=== PATIENT | female | born 1935 | race Caucasian/White ===

== ENCOUNTER 2019-12-07 08:22 | Day surgery (SDC) | payer MEDICARE, OTHER ==
--- NOTE | 2019-12-07 11:05 | NUR ---
1040 PT BROUGHT TO ROOM 203 VIA [facility]. GUMARO CHECKS FOLLOWS. PT HAS CHRONIC WEAKNESS IN R LEG WITH PUSH AND PULL. PT C/O OF LOSING ABILITY TO USE L HAND. PACKER DENTURE BILATERALLY EQUAL. PT GAURDING LEFT ARM. PT IS LEFT HAND DOMINANT. PT STATES THET HER PAIN IS THE SAME BEFORE THE MYELOGRAM. Dressing to procedure site clean, dry, intact with no visible drainage, swelling, erythema or bruising noted. VSS. PROVIDED FOOD AND FLUID. WILL CONTINUE TO MONITOR FOR CHANGES. PT VERBALIZES UNDERSTANDING OF SYMPTOMS TO REPORT TO NURSING STAFF.
--- NOTE | 2019-12-07 11:58 | NUR ---
Dressing to procedure site clean, dry, intact with no visible drainage, swelling, erythema or bruising noted. Discharge instructions reviewed with patient. Patient verbalizes understanding. Copy given to patient to take home. NO CHANGE IN NUERO CHECKS T/O RECOVERY. Patient States Post-Procedure ride home has been arranged. Discharged via wheelchair to private car for ride home. ALL BELONINGS SENT HOME WITH PATIENT.
== END 2019-12-07 22:59 | disposition home or self-care (01) ==
LOC: RAD 08:22
DX: M54.2 Cervicalgia (principal); R20.3 Hyperesthesia; J44.1 Chronic obstructive pulmonary disease with (acute) exacerbation; I11.0 Hypertensive heart disease with heart failure; I50.32 Chronic diastolic (congestive) heart failure; E03.9 Hypothyroidism, unspecified; Q21.1 Atrial septal defect; D64.9 Anemia, unspecified; K90.0 Celiac disease; E87.1 Hypo-osmolality and hyponatremia; E66.9 Obesity, unspecified; Z68.38 Body mass index [BMI] 38.0-38.9, adult
CPT/HCPCS: 62302; 72126; Q9967

== ENCOUNTER 2022-10-18 00:53 | Emergency (ER) | payer MEDICARE, OTHER ==
[~2022-10-18] VITALS: Ht 165.1 cm; Wt 77.1 kg
[2022-10-18 01:45] LABS: Calcium, Ionized (POC) 1.14 mmol/L (1.10-1.46); Chloride (POC) 100 mmol/L (98-108); Glucose (ISTAT POC) 150 mg/dL (70-99); Hemoglobin (POC) 10.5 g/dL (12.0-16.0); Potassium (POC) 3.7 mmol/L (3.5-5.5); Sodium (POC) 140 mmol/L (135-148); Total CO2 (POC) 29 mmol/L (21-32)
[2022-10-18 03:58] VITALS: BP 115/87
[2022-10-18] MEDS ORDERED: HORIZANT300 MG (04:22)
[2022-10-18] MEDS ORDERED: GABA100 (04:22)
[2022-10-18] MEDS ORDERED: ROPINIROLE HCL2 M1 PO (04:23)
[2022-10-18] MEDS ORDERED: FUROSEMIDE40 MG PO (04:24)
[2022-10-18] MEDS ORDERED: ELIQUIS5 M3 PO (04:24)
== END 2022-10-18 04:18 | disposition home or self-care (01) ==
LOC: ER 00:53
PROVIDERS: Emergency Medicine
DX: G25.81 Restless legs syndrome (principal); I48.91 Unspecified atrial fibrillation; F17.200 Nicotine dependence, unspecified, uncomplicated; Z88.8 Allergy status to other drugs, medicaments and biological substances; Z91.018 Allergy to other foods
CPT/HCPCS: 80047; 85014; 93005; 93010; 96374; 96376; 99284-25; A9270; J2060

== ENCOUNTER 2023-02-02 01:50 | Emergency (ER) | payer MEDICARE, OTHER ==
[~2023-02-02] VITALS: Ht 167.6 cm; Wt 78.0 kg
[~2023-02-02 01:50] MED LIST: ELIQUIS5 M3 PO; FUROSEMIDE40 MG PO; GABA100; HORIZANT300 MG; ROPINIROLE HCL2 M1 PO
[2023-02-02 04:30] VITALS: BP 121/107
== END 2023-02-02 06:00 | disposition home or self-care (01) ==
LOC: ER 01:50
DX: R29.6 Repeated falls (principal); S16.1XXA Strain of muscle, fascia and tendon at neck level, initial encounter; S05.12XA Contusion of eyeball and orbital tissues, left eye, initial encounter; S70.01XA Contusion of right hip, initial encounter; I48.91 Unspecified atrial fibrillation; F17.210 Nicotine dependence, cigarettes, uncomplicated; Z88.6 Allergy status to analgesic agent; Z91.018 Allergy to other foods; Z79.01 Long term (current) use of anticoagulants; W19.XXXA Unspecified fall, initial encounter
CPT/HCPCS: 70450; 72125; 73502

== ENCOUNTER 2023-03-30 05:32 | Inpatient (IN) | payer MEDICARE, OTHER ==
[~2023-03-30] VITALS: Ht 165.1 cm; Wt 64.6 kg
[2023-03-30] MEDS ORDERED: LISI5 PO (06:19)
[2023-03-30] MEDS ORDERED: METO50ER PO (06:19)
[2023-03-30] MEDS ORDERED: FUROSEMIDE20 MG PO (06:19)
[2023-03-30] MEDS ORDERED: Ventolin/Prove6.7 GM INH (06:20)
[2023-03-30] MEDS ORDERED: [UNRECOGNIZED DRUG - CODE] PO (06:32)
[2023-03-30 07:10] LABS: Influenza A, PCR NEGATIVE (NEGATIVE); Influenza B, PCR NEGATIVE (NEGATIVE); Resp Syncytial Virus, PCR NEGATIVE (NEGATIVE); SARS-Cov-2 (COVID-19) PCR, MMC NEGATIVE (NEGATIVE)
[2023-03-30 07:58] LABS: BASOPHILS ABSOLUTE AUTO 0.03 K/mm3 (0.00-0.23); BASOPHILS PERCENT AUTO 0 % (0-2); EOSINOPHILS PERCENT AUTO 1 % (0-6); Hematocrit 40.8 % (33.0-51.0); Hemoglobin 13.3 g/dL (11.5-16.0); IMMATURE GRAN ABSOLUTE AUTO 0.03 K/mm3 (0.00-0.10); IMMATURE GRAN PERCENT AUTO 0 % (0-1); LYMPHOCYTES PERCENT AUTO 14 % (21-46); MONOCYTES PERCENT AUTO 6 % (4-13); Mean Corpuscular HGB Conc 32.6 g/dL (31.5-36.5); Mean Corpuscular Volume 86 fL (80-100); Mean Platelet Volume 11.3 fL (9.1-12.4); NEUTROPHILS ABSOLUTE AUTO 8.44 K/mm3 (1.96-9.15); NEUTROPHILS PERCENT AUTO 79 % (41-73); Platelet Count 269 K/mm3 (150-400); RDW Coefficient Variation 16.1 % (11.7-14.2); RDW Standard Deviation 50.4 fL (35.1-46.3); Red Blood Cell Count 4.75 M/mm3 (3.80-5.20)
[2023-03-30 08:15] LABS: Albumin, Blood 3.7 g/dL (3.4-5.0); Albumin/Globulin Ratio 0.9 (0.8-1.8); Bilirubin, Total 1.8 mg/dL (0.1-1.0); Calcium, Blood 9.2 mg/dL (8.5-10.1); Potassium, Blood 3.8 mmol/L (3.5-5.5); Total Protein, Blood 7.7 g/dL (6.4-8.2)
[2023-03-30 08:51] LABS: Base Excess Venous 5.3 mmol/L; PCO2 Venous 51.1 mmHg (38-42); pH Blood Venous 7.38 (7.34-7.37)
[2023-03-30 12:07] VITALS: BP 144/84
[2023-03-30 14:57] VITALS: BP 121/80
--- NOTE | 2023-03-30 16:19 | NUR ---
SHIFT SUMMARY: PATIENT ARRIVED TO ROOM AT AROUND 1150 VIA GURNEY FROM ER FOR DX'S OF CHF EXCERBATION. PATIENT IS A/OX4. CALM, PLEASANT AND COOPERATIVE c CARE. MEDRIC, ADMISSION AND 2 RN'S SKIN ASSESSMENT COMPLETED. PATIENT LUNGS COARSE, CRACKLES AND MOIST T/O TO AUSCULTATION. PATIENT WAS ON 4L OF O2 VIA NC WHEN ARRIVED TO ROOM c SPO2 RANGES 99-100%. O2 WAS TITRATED DOWN TO 2L VIA NC c SPO2 RANGES 96-97%. PATIENT ON CONTINUES BIOX IN ROOM, PLACED ON RA AT AROUND 1240, SPO2 RANGES 94-96% T/O SHIFT. PATIENT DENIES CP/PRESSURE, SOB, N/V, DIZZINESS AND GENERALIZED PAIN. REPORTS CHRONIC RESTLESS LEG SYNDROME. PATIENT HAS IMPLANTED PAIN PUMP STIMULATOR TO L LOWER BACK. PATIENT ON TELE, AFIB HR IN THE MID 90'S BPM. PATIENT RECEIVED 40 MG OF IV LASIX AND IV ABX. PUREWICKED SYTEM PLACED, CONNECTED TO LOW SUCTION c 1200 MLS TOTAL URINE OUTPUT & 1 INCONTINENCE VOID THIS SHIFT . PATIENT REPORTS SHE LEFT HER PURSE c MONEY IN IT DOWN IN ER ROOM. THIS RN CALLED, ROBINSON SANTACRUZ RN IN ED TAKING CARE OF PATIENT. PER ROBINSON, SHE CHECKED THE ROOM OF WERE THE PATIENT WAS AND SHE COULD NOT FIND ANY PURSE. DRY BOSS WAS NOTIFIED c THIS ISSUE. THIS RN TRIED TO CALL THE NUMBER LISTED ON PATIENT RECORD, BUT NO ONE ABLE TO ANSWER THE PHONE. VITAL SIGNS REVIEWED. SCD'S TO BLE IN PLACED. BED ALARM ON FOR SAFETY. CALL LIGHT IN REACH.
[2023-03-30 19:29] VITALS: BP 119/91
[2023-03-31 03:58] VITALS: BP 147/102
--- NOTE | 2023-03-31 04:44 | NUR ---
SHIFT SUMMARY: PRODUCTIVE COUGH, ALMOST CONSTANT. LUNG SOUNDS ARE VERY WET AND CRACKLY. RT PLACED PT ON BIPAP EARLY IN THE SHIFT, BUT PT UNABLE TO TOLERATE SO SHE TOOK IT OFF AND O2 VIA NC WAS PLACED. LATER IN THE SHIFT, BREATHING TREATMENT WAS REQUESTED BY THIS AUTHOR TO SEE IF IT WOULD EASE HER COUGHING. RT CAME BY AND EDUCATED PT THAT SHE NEEDED THE BIPAP D/T HER CHF AND FLUID OVERLOAD. PT HAS BEEN COMPLIANT SINCE. NO EVENTS ON TELEMETRY, AFIB 90'S. RESTLESS LEGS ALSO MADE PT UNCOMFORTABLE DURING THE NIGHT, UNABLE TO TOLERATE SCD'S. GOT UP TO BR X 1 WITH ASSISTANCE.
--- NOTE | 2023-03-31 05:47 | NUR ---
PATIENT WITH HX OF RESTLESS LEGS SYNDROME, GAVE 2100 DOSE ROPINIROLE. AT ~ 0500, PATIENT MOVING HER LEGS VIOLENTLY IN BED. RR INCREASED TO 30'S PER BIPAP AND SHE WAS CRYING OUT IN PAIN. SPOKE TO DR. MINOR BY PHONE TO REPORT THIS; RECEIVED TELEPHONE ORDER FOR VALIUM 2.5 MG IV ONCE TO SEE IF THAT WOULD HELP HER LEGS AND ALLOW HER TO REST. VALIUM GIVEN AND LEGS APPEAR CALM AT HIS TIME. RR 12-14, O2 SAT 89-92% ON BIPAP.
[2023-03-31 05:50] LABS: Bun/Creatinine Ratio 17.4 (12.0-20.0); Calcium, Blood 8.1 mg/dL (8.5-10.1); Creatinine, Blood 0.86 mg/dL (0.40-1.00); Potassium, Blood 3.1 mmol/L (3.5-5.5)
[2023-03-31 07:26] VITALS: BP 134/99
--- NOTE | 2023-03-31 09:07 | NUR ---
ROBINSON CARLTON, Dispop REPORTED HR DIPPING TO 34. PATIENT WAS ASYMPTOMATIC AT THE TIME. SHE IS CURRENTLY RUNNING AFIB IN THE 80'S. DR GARCIA. WILL CONTNUE TO MONITOR.
--- NOTE | 2023-03-31 16:15 | NUR ---
SHIFT SUMMARY A&OX4, COOPERATIVE WITH CARE, PLEASANT. CALLED APPROPRIATELY T/O SHIFT. DENIED HAVING ANY CP/PRESSURE, HEADACHE, OR DIZZINESS. SOB AT BASELINE R/T COPD AND CHRONIC SMOKER. PATIENT HAS BEEN AMBULATING TO THE BATHROOM SBA WITH FWW WELL. KYPHOSIS NOTED. NO ACUTE CHANGES THIS SHIFT. PATIENT IS BEING DIURESED. CURRENTLY IS EATING ICE CREAM AND WATCHING TV. BED IN LOWEST POSITION. CALL LIGHT WITHIN REACH.
[2023-03-31 16:31] VITALS: BP 113/78
[2023-03-31 19:39] VITALS: BP 135/80
[2023-04-01 04:27] VITALS: BP 100/71
--- NOTE | 2023-04-01 06:20 | NUR ---
SHIFT SUMMARY ADMITTED FOR CHF EXAC/RLL PNEUMONIA. FULL CODE. PLAN IS DIURESE, ANTIBIOTICS, AND RT TX'S. SHE IS ON RA IN DAYTIME, 2 LPM @ HS. SHE DOES NOT TOLERATE THE BIPAP. TELEMETRY: AFIB @ 70 BPM W/BBB. DYSPNEA W/EXERTION AND WET COUGH. 1 ASSIST W/FWW - BRP. LUNGS COARSE THROUGHOUT, CRACKLES IN BASES. NO NEW CONCERNS THIS SHIFT
[2023-04-01 06:39] LABS: Bun/Creatinine Ratio 22.7 (12.0-20.0); Creatinine, Blood 1.19 mg/dL (0.40-1.00); Potassium, Blood 4.2 mmol/L (3.5-5.5)
[2023-04-01 07:25] VITALS: BP 112/72
--- NOTE | 2023-04-01 10:40 | NUR ---
MILANA CALLED PT FRIEND MARTA AT HOME. HE CONFIRMED THAT HER PURSE IS HANGING ON HER WALKER. HE IS AVAILABLE TO COME GET HER TODAY. CARE ON GOING.
--- NOTE | 2023-04-01 11:44 | NUR ---
BIPAP PT USING BIPAP AFTER THERAPY. SHE DOESN'T DESAT BUT HER WORK OF BREATHING GOES UP. LUNGS COARSE T/O. DEEP WET CONGESTED COUGH. PT TOLERATING BIPAP WELL. CONTINUE POC.
[2023-04-01 14:48] VITALS: BP 84/54
[2023-04-01] MEDS ORDERED: JARDIANCE10 MG PO (15:08)
[2023-04-01] MEDS ORDERED: FURO40 PO (15:09)
[2023-04-01] MEDS ORDERED: LEVFLO500 PO (15:09)
[2023-04-01] MEDS ORDERED: POTA10T PO (15:10)
--- NOTE | 2023-04-01 15:55 | NUR ---
DISCHARGE PT DISCHARGED HOME. [facility] WILL MEET HER OUTSIDE ADMITTING. PT IV REMOVED WITH [facility]A INTACT. PRESSURE DRESSING APPLIED. PT TRANSPORTED VIA W/C. CONTINUE POC.
== END 2023-04-01 15:55 | disposition home health service (06) | DRG 193 ==
LOC: ER 05:32 → MEDS 10:06 → ENPENDDIS 04-01 13:29 → MEDS 04-01 15:55
PROVIDERS: Emergency Medicine; ADMIT Internal Medicine
PROC: 5A09357 Assistance with Respiratory Ventilation, Less than 24 Consecutive Hours, Continuous Positive Airway Pressure (ICD-10-PCS; principal; 2023-03-30)
DX: J18.9 Pneumonia, unspecified organism (principal); I50.33 Acute on chronic diastolic (congestive) heart failure; J96.01 Acute respiratory failure with hypoxia; I48.20 Chronic atrial fibrillation, unspecified; Z20.822 Contact with and (suspected) exposure to COVID-19; I11.0 Hypertensive heart disease with heart failure; G25.81 Restless legs syndrome; I16.0 Hypertensive urgency; J44.9 Chronic obstructive pulmonary disease, unspecified; F17.210 Nicotine dependence, cigarettes, uncomplicated; Z99.81 Dependence on supplemental oxygen; Z91.018 Allergy to other foods; Z88.8 Allergy status to other drugs, medicaments and biological substances; Z79.899 Other long term (current) drug therapy; Z23 Encounter for immunization
CPT/HCPCS: 0241U; 36415; 71045; 80048; 80053; 82803; 82947; 83735; 83880; 84145; 85025; 93005; 93010; 93306; 94640; 94660; 94664; 94761; 94762; 97110; 97116; 97161; 99285-25; A9270; J0696; J1940; J3360

== ENCOUNTER 2023-12-24 21:31 | Emergency (ER) | payer MEDICARE, OTHER ==
[~2023-12-24] VITALS: Ht 154.9 cm; Wt 59.0 kg
[~2023-12-24 21:31] MED LIST changes: +AZIT250 PO; +FURO40 PO; +FUROSEMIDE20 MG PO; +JARDIANCE10 MG PO; +LEVFLO500 PO; +LISI5 PO; +METO50ER PO; +POTA10T PO; +PRED20 PO; +Ventolin/Prove6.7 GM INH; +[UNRECOGNIZED DRUG - CODE] PO
[2023-12-24 21:35] VITALS: BP 101/61
[2023-12-24 22:21] LABS: Hematocrit 37.8 % (33.0-51.0); Hemoglobin 12.2 g/dL (11.5-16.0); Mean Corpuscular HGB Conc 32.3 g/dL (31.5-36.5); Mean Corpuscular Volume 87 fL (80-100); RDW Coefficient Variation 15.7 % (11.7-14.2); RDW Standard Deviation 50.3 fL (35.1-46.3); Red Blood Cell Count 4.36 M/mm3 (3.80-5.20); White Blood Cell Count 7.54 K/mm3 (4.00-11.30)
[2023-12-24 22:32] LABS: Albumin, Blood 3.4 g/dL (3.4-5.0); Bilirubin, Total 1.3 mg/dL (0.1-1.0); Bun/Creatinine Ratio 23.1 (12.0-20.0); Calcium, Blood 8.7 mg/dL (8.5-10.1); Creatinine, Blood 0.78 mg/dL (0.40-1.00); Globulin, Blood 3.4 g/dL (2.2-4.0); Potassium, Blood 4.4 mmol/L (3.5-5.5); Total Protein, Blood 6.8 g/dL (6.4-8.2)
[2023-12-24] MEDS ORDERED: Ketorolac Tromethamine 30mg Vial IV ONE (22:40)
[2023-12-24] MEDS ORDERED: rOPINIRole HCl 2 MG Tab PO ONE (22:55)
[2023-12-24] MEDS ORDERED: Ropinirole HCl1 MG PO (22:56)
[2023-12-24 23:14] LABS: BAND PERCENT MAN 2 % (0-8); BASOPHILS ABSOLUTE MAN 0.07 K/mm3 (0.00-0.23); BASOPHILS PERCENT MAN 1 % (0-2); EOSINOPHILS ABSOLUTE MAN 0.37 K/mm3 (0.00-0.68); EOSINOPHILS PERCENT MAN 5 % (0-6); LYMPHOCYTES % ATYPICAL MANUAL 1 % (0-0); LYMPHOCYTES PERCENT MAN 23 % (21-46); MONOCYTES ABSOLUTE MAN 0.67 K/mm3 (0.16-1.47); MONOCYTES PERCENT MAN 9 % (4-13); NEUTROPHILS ABSOLUTE MAN 4.59 K/mm3 (1.96-9.15); SEG NEUTROPHILS PERCENT MAN 59 % (41-73); TOTAL CELLS COUNTED 100
[2023-12-24 23:15] LABS: Platelet Count 212 K/mm3 (150-400)
== END 2023-12-24 23:26 | disposition home or self-care (01) ==
LOC: ER 21:31
PROVIDERS: Emergency Medicine
DX: Z76.0 Encounter for issue of repeat prescription (principal); J44.1 Chronic obstructive pulmonary disease with (acute) exacerbation; I11.0 Hypertensive heart disease with heart failure; I50.9 Heart failure, unspecified; F17.210 Nicotine dependence, cigarettes, uncomplicated; Z88.6 Allergy status to analgesic agent; Z91.018 Allergy to other foods; Z79.899 Other long term (current) drug therapy; Z99.81 Dependence on supplemental oxygen
CPT/HCPCS: 71045; 80053; 83880; 84484; 85025; 93005; 93010; 96374; 99285-25; A9270; J1885

== ENCOUNTER 2024-07-30 22:04 | Observation (INO) | payer MEDICARE, OTHER ==
[~2024-07-30] VITALS: Ht 165.1 cm; Wt 63.3 kg
[~2024-07-30 22:04] MED LIST changes: +Ropinirole HCl1 MG PO
[2024-07-30] MEDS ORDERED: Ipratropium/Albuterol SulF 2.5-0.5MG/3 ML Amp INH ONE (22:25)
[2024-07-30 22:30] LABS: BASOPHILS ABSOLUTE AUTO 0.02 K/mm3 (0.00-0.23); BASOPHILS PERCENT AUTO 0 % (0-2); EOSINOPHILS ABSOLUTE AUTO 0.31 K/mm3 (0.00-0.68); EOSINOPHILS PERCENT AUTO 6 % (0-6); Hematocrit 35.7 % (33.0-51.0); Hemoglobin 11.6 g/dL (11.5-16.0); IMMATURE GRAN ABSOLUTE AUTO 0.01 K/mm3 (0.00-0.10); IMMATURE GRAN PERCENT AUTO 0 % (0-1); LYMPHOCYTES ABSOLUTE AUTO 2.31 K/mm3 (0.84-5.20); LYMPHOCYTES PERCENT AUTO 43 % (21-46); MONOCYTES ABSOLUTE AUTO 0.41 K/mm3 (0.16-1.47); MONOCYTES PERCENT AUTO 8 % (4-13); Mean Corpuscular HGB 29.3 pg (26.0-34.0); Mean Corpuscular HGB Conc 32.5 g/dL (31.5-36.5); Mean Corpuscular Volume 90 fL (80-100); Mean Platelet Volume 11.4 fL (9.1-12.4); NEUTROPHILS ABSOLUTE AUTO 2.34 K/mm3 (1.96-9.15); NEUTROPHILS PERCENT AUTO 43 % (41-73); Platelet Count 190 K/mm3 (150-400); RDW Coefficient Variation 15.5 % (11.7-14.2); RDW Standard Deviation 51.1 fL (35.1-46.3); Red Blood Cell Count 3.96 M/mm3 (3.80-5.20)
[2024-07-30 22:47] LABS: Albumin, Blood 3.3 g/dL (3.4-5.0); Bilirubin, Total 0.7 mg/dL (0.1-1.0); Globulin, Blood 3.2 g/dL (2.2-4.0); Potassium, Blood 3.9 mmol/L (3.5-5.5); Total Protein, Blood 6.5 g/dL (6.4-8.2)
[2024-07-30 23:48] LABS: Influenza A, PCR NEGATIVE (NEGATIVE); Influenza B, PCR NEGATIVE (NEGATIVE); Resp Syncytial Virus, PCR NEGATIVE (NEGATIVE); SARS-Cov-2 (COVID-19) PCR, MMC NEGATIVE (NEGATIVE)
[2024-07-31] MEDS ORDERED: Ipratropium/Albuterol SulF 2.5-0.5MG/3 ML Amp INH SCH (00:20)
[2024-07-31] MEDS ORDERED: FLU VACC TS2024-25(6MOS UP)/PF 45 MCG/0.5 ML SYRINGE IM ONE (00:20)
[2024-07-31] MEDS ORDERED: Ketorolac Tromethamine 30mg Vial IV ONE (01:00)
[2024-07-31 01:28] LABS: Base Excess Venous 6.4 mmol/L; Bicarbonate Venous 28.3 mmol/L (24.0-30.0); pH Blood Venous 7.35 (7.34-7.37)
[2024-07-31 02:47] LABS: BASOPHILS ABSOLUTE AUTO 0.04 K/mm3 (0.00-0.23); BASOPHILS PERCENT AUTO 1 % (0-2); EOSINOPHILS ABSOLUTE AUTO 0.31 K/mm3 (0.00-0.68); EOSINOPHILS PERCENT AUTO 5 % (0-6); Hematocrit 39.9 % (33.0-51.0); Hemoglobin 12.7 g/dL (11.5-16.0); IMMATURE GRAN PERCENT AUTO 0 % (0-1); LYMPHOCYTES ABSOLUTE AUTO 2.43 K/mm3 (0.84-5.20); LYMPHOCYTES PERCENT AUTO 42 % (21-46); MONOCYTES ABSOLUTE AUTO 0.38 K/mm3 (0.16-1.47); MONOCYTES PERCENT AUTO 7 % (4-13); Mean Corpuscular HGB 28.9 pg (26.0-34.0); Mean Corpuscular HGB Conc 31.8 g/dL (31.5-36.5); Mean Corpuscular Volume 91 fL (80-100); Mean Platelet Volume 11.4 fL (9.1-12.4); NEUTROPHILS ABSOLUTE AUTO 2.57 K/mm3 (1.96-9.15); NEUTROPHILS PERCENT AUTO 45 % (41-73); Platelet Count 206 K/mm3 (150-400); RDW Coefficient Variation 15.3 % (11.7-14.2); White Blood Cell Count 5.73 K/mm3 (4.00-11.30)
[2024-07-31 03:02] LABS: Albumin, Blood 3.7 g/dL (3.4-5.0); Albumin/Globulin Ratio 1.1 (0.8-1.8); Bilirubin, Total 0.8 mg/dL (0.1-1.0); Bun/Creatinine Ratio 18.4 (12.0-20.0); Calcium, Blood 9.5 mg/dL (8.5-10.1); Creatinine, Blood 1.03 mg/dL (0.40-1.00); Globulin, Blood 3.5 g/dL (2.2-4.0); Magnesium, Blood 2.2 mg/dL (1.6-2.4); Potassium, Blood 3.8 mmol/L (3.5-5.5); Total Protein, Blood 7.2 g/dL (6.4-8.2)
[2024-07-31] MEDS ORDERED: Ketorolac Tromethamine 15mg Vial IV ONE (03:30)
[2024-07-31] MEDS ORDERED: rOPINIRole HCl 2 MG Tab PO ONE (04:00)
[2024-07-31 04:31] LABS: PCO2 Venous 50.8 mmHg (38-42); pH Blood Venous 7.41 (7.34-7.37)
[2024-07-31 04:32] LABS: Base Excess Venous 7.5 mmol/L; Bicarbonate Venous 29.9 mmol/L (24.0-30.0)
[2024-07-31] MEDS ORDERED: Gabapentin 300 MG Cap PO ONE (05:25)
[2024-07-31] MEDS ORDERED: rOPINIRole HCl 2 MG Tab PO SCH (09:00)
[2024-07-31] MEDS ORDERED: Lisinopril 5 MG Tab PO SCH (09:00)
[2024-07-31] MEDS ORDERED: PredniSONE 20 MG Tab PO SCH (09:00)
[2024-07-31] MEDS ORDERED: Metoprolol Succinate 50 MG TABCR PO SCH (09:00)
[2024-07-31] MEDS ORDERED: Empagliflozin 10 MG TAB PO SCH (09:00)
[2024-07-31] MEDS ORDERED: Furosemide 40 MG Tab PO SCH (09:00)
[2024-07-31] MEDS ORDERED: Enoxaparin 40 MG/0.4 ML SYR SC SCH (09:00)
[2024-07-31] MEDS ORDERED: GuaiFENesin 600 MG TabCR PO SCH (09:00)
[2024-07-31 11:10] VITALS: BP 117/72
[2024-07-31] MEDS ORDERED: ASPI81CH PO (11:15)
[2024-07-31] MEDS ORDERED: EUTHYROX125 MCG PO (11:16)
[2024-07-31] MEDS ORDERED: Furosemide 10 MG / ML 2ML Vial IV SCH (15:00)
[2024-07-31 16:09] VITALS: BP 125/91
[2024-07-31] MEDS ORDERED: Azithromycin 250 MG Tab PO SCH (16:48)
[2024-07-31 19:27] VITALS: BP 115/64
[2024-07-31] MEDS ORDERED: Gabapentin 100 MG Cap PO SCH (21:00)
[2024-07-31] MEDS ORDERED: Benzonatate 100 MG Cap PO PRN (21:10)
[2024-07-31 23:23] LABS: Adenovirus Not Detected (NOT DETECT); Bordetella pertussis Not Detected (NOT DETECT); Chlamydophila pneumoniae Not Detected (NOT DETECT); Coronavirus 229E Not Detected (NOT DETECT); Coronavirus HKU1 Not Detected (NOT DETECT); Coronavirus NL63 Not Detected (NOT DETECT); Coronavirus OC43 Not Detected (NOT DETECT); Human Metapneumovirus Not Detected (NOT DETECT); Human Rhinovirus/Enterovirus Not Detected (NOT DETECT); Influenza A/2009-H1 Not Detected (NOT DETECT); Influenza A/H1 Not Detected (NOT DETECT); Influenza A/H3 Not Detected (NOT DETECT); Influenza B Not Detected (NOT DETECT); Mycoplasma pneumoniae Not Detected (NOT DETECT); Parainfluenza Virus 1 Not Detected (NOT DETECT); Parainfluenza Virus 2 Not Detected (NOT DETECT); Parainfluenza Virus 3 Not Detected (NOT DETECT); Parainfluenza Virus 4 Not Detected (NOT DETECT); Respiratory Syncytial Virus Not Detected (NOT DETECT); SARS-Cov-2 (COVID-19), BioFire Not Detected (NOT DETECT)
--- NOTE | 2024-08-01 04:05 | NUR ---
SHIFT SUMMARY ADMITTED FOR RESPIRATORY FAILURE. FULL CODE. PLAN IS TO DIURESE HER. ANTIB RX ARE SCHEDULED. A&O X4. CARDIAC DIET. PLEURITIC CHEST PAIN FROM COUGHING. ON HER BASELINE OF 2 LPM O2. 1 ASSIST W/FWW. 2+ BLE EDEMA. TESSLON PEARLS ORDERED/GIVEN THIS SHIFT FOR COUGH. HX: CHF, COPD.
[2024-08-01 05:25] LABS: Anion Gap 8 mmol/L (3-11); Blood Urea Nitrogen 31 mg/dL (8-24); Bun/Creatinine Ratio 24.8 (12.0-20.0); CO2, Blood 31 mmol/L (21-32); Chloride, Blood 106 mmol/L (98-108); Creatinine, Blood 1.25 mg/dL (0.40-1.00); Glomerular Filtration Rate 42 (60-); Glucose, Blood 65 mg/dL (70-99); Magnesium, Blood 2.1 mg/dL (1.6-2.4); Phosphorus, Blood 4.8 mg/dL (2.5-4.9); Potassium, Blood 3.4 mmol/L (3.5-5.5); Sodium, Blood 142 mmol/L (136-145)
[2024-08-01 05:34] VITALS: BP 108/66
[2024-08-01 07:36] VITALS: BP 108/69
[2024-08-01] MEDS ORDERED: Aspirin 81 MG Chew PO SCH (09:00)
[2024-08-01] MEDS ORDERED: Potassium Chloride 20 MEQ TabCR PO ONE (09:00)
[2024-08-01 15:38] VITALS: BP 109/74
--- NOTE | 2024-08-01 16:11 | NUR ---
SHIFT SUMMARY PATIENT ABLE TO SIT IN CHAIR FOR DINNER. CONTINUES TO HAVE COUGHING EPISODES, USING OXYGEN INTERMITTENTLY THROUGHOUT SHIFT. A/O X4. LARGE EPISODES OF URINE INCONTINENCE, ENCOURAGED TO USE BSC AND CALL FOR ASSISTANCE. BED BATH THIS SHIFT. ABLE TO MAKE NEEDS KNOWN. CALL LIGHT IN REACH, CARES ONGOING
[2024-08-01 20:03] VITALS: BP 129/87
--- NOTE | 2024-08-02 04:17 | NUR ---
SHIFT SUMMARY. PATIENT IS A&PX4. PATIENT CALLS APPROPRIATELY AND IS ABLE TO MAKE HER NEEDS KNOWN. PATIENT HAD 1 EPISODE OF INCONTINENCE THIS SHIFT OTHER VIRK AMBULATING TO THE BATHROOM WITH 1P ASSIST. PATIENT HAVING MOMENTS OF HARSH COUGHING THAT IS MOIST. PATIENT HAD SHOWER THIS AM WITH LINENS CHANGED. PATIENT DRINKING AND EATING OKAY THIS SHIFT WITH SNACKS. BED IS LOCKED IN THE LOWEST POSITION WITH CALL LIGHT IN REACH. CARE IS ONGOING.
[2024-08-02 05:01] LABS: Bun/Creatinine Ratio 31.4 (12.0-20.0); Calcium, Blood 8.8 mg/dL (8.5-10.1); Creatinine, Blood 1.21 mg/dL (0.40-1.00); Potassium, Blood 4.2 mmol/L (3.5-5.5)
[2024-08-02 05:27] LABS: Hematocrit 40.3 % (33.0-51.0); Hemoglobin 12.5 g/dL (11.5-16.0); Mean Corpuscular HGB 28.8 pg (26.0-34.0); Mean Corpuscular Volume 93 fL (80-100); Mean Platelet Volume 11.8 fL (9.1-12.4); Platelet Count 189 K/mm3 (150-400); RDW Standard Deviation 52.1 fL (35.1-46.3); Red Blood Cell Count 4.34 M/mm3 (3.80-5.20); White Blood Cell Count 6.77 K/mm3 (4.00-11.30)
[2024-08-02 05:54] VITALS: BP 123/79
[2024-08-02 07:33] VITALS: BP 140/81
[2024-08-02] MEDS ORDERED: ALBU2.5V5 INH (13:20)
[2024-08-02] MEDS ORDERED: AZIT500 PO (13:26)
[2024-08-02] MEDS ORDERED: Tessalon200 MG PO (13:26)
[2024-08-02] MEDS ORDERED: GUAI600T33 PO (13:27)
[2024-08-02] MEDS ORDERED: IPRAT-ALBUT 0.5-3 ML INH (13:28)
[2024-08-02] MEDS ORDERED: PRED20 PO (13:31)
[2024-08-02 16:54] VITALS: BP 130/87
--- NOTE | 2024-08-02 17:36 | NUR ---
SHIFT SUMMARY PT WAS TO DC THIS SHIFT. [place] PT FRIEND STATED AT 1400 WHEN SHE CALLED TO TALK TO PT THAT SHE WOULD BE HERE IN ABOUT AN HOUR. PT RIDE HAS STILL NOT SHOWN UP. THIS NURSE HAS ATTMPTED TO CALL BUT THE NUMBER IN THE CHART IS NO LONGER IN SERVICE. THIS NURSE HAS ALSO ATTMPTED TO CALL PT DAUGHTER WHOM IS IN CHART WITH NO ANSWER OR CALL BACK. PHYSICAIN WAS CALLED AND MESSAGE WAS LEFT WITH PHYSICIAN TO WHAT WAS GOING ON.
--- NOTE | 2024-08-02 18:39 | NUR ---
discharge summary pt ride showed up at 1840 and pt dc home. dc instruction went over with pt and pt stated understanding. this nurse reminded pt that she will need to pick medication up. pt was escorted out by field laboratory operator to private vehicle.
== END 2024-08-02 18:41 | disposition home health service (06) ==
LOC: ER 22:04 → ERHOLD 22:05 → ER 07-31 00:12 → MEDS 07-31 00:12 → ERHOLD 07-31 00:12 → MEDS 07-31 10:59
PROVIDERS: Emergency Medicine; Internal Medicine; ADMIT Student in an Organized Health Care Education/Training Program
DX: J96.22 Acute and chronic respiratory failure with hypercapnia (principal); J96.21 Acute and chronic respiratory failure with hypoxia; J84.10 Pulmonary fibrosis, unspecified; E87.6 Hypokalemia; E16.2 Hypoglycemia, unspecified; E03.9 Hypothyroidism, unspecified; J44.1 Chronic obstructive pulmonary disease with (acute) exacerbation; I27.20 Pulmonary hypertension, unspecified; I13.0 Hypertensive heart and chronic kidney disease with heart failure and stage 1 through stage 4 chronic kidney disease, or unspecified chronic kidney disease; I50.33 Acute on chronic diastolic (congestive) heart failure; N18.30 Chronic kidney disease, stage 3 unspecified; E11.22 Type 2 diabetes mellitus with diabetic chronic kidney disease; Z79.82 Long term (current) use of aspirin; Z79.899 Other long term (current) drug therapy
CPT/HCPCS: 0202U; 0241U; 36415; 71045; 71250; 80048; 80053; 80069; 82803; 83735; 83880; 84145; 84484; 85025; 85027; 93005; 93010; 93306; 94640; 94660; 94664; 94760; 96372; 96374; 96376; 97110; 97116; 97162; 97165; 97535; 99285-25; A9270; G0378; J1650; J1885; J1940; J7512